=== PATIENT | female | born 1965 | race American Indian/Alaskan Native ===

== ENCOUNTER 2017-10-18 13:54 | Emergency (ER) | payer SELFPAY ==
[2017-10-18 15:10] VITALS: BP 144/87
[2017-10-18 16:37] LABS: Bacteria,Urine 1+ /HPF (Negative); Mucus,Urine FEW /HPF; WBC,Urine < 1.0 /HPF (0.0-6.0)
[2017-10-18 16:38] LABS: Bilirubin,Urine NEG (Negative); Blood,Urine NEG (Negative); Ketones,Urine NEG (Negative); Leukocyte Esterase,Urine NEG (Negative); Nitrite,Urine NEG (Negative); Protein,Urine <15 mg/dL mg/dL (Negative); Urobilinogen,Urine < 2.0 mg/dL (<2.0)
[2017-10-18 16:42] LABS: Hematocrit 36.1 % (30.3-42.9); Hemoglobin 12.3 gm/dl (10.1-14.3); Mean Corpuscular HGB Conc 34 % (30-34); Mean Corpuscular Hemoglobin 27 pg (28-32); Mean Corpuscular Volume 80 fl (79-97); Platelet Count 389 K/mm3 (140-440); Red Cell Distribution Width 14.3 % (13.2-15.2); White Blood Count 12.9 K/mm3 (4.5-11.0)
--- NOTE | 2017-10-18 17:04 | Emergency Department Report ---
ED Abdominal Pain HPI - General Chief Complaint: Abdominal Pain Stated Complaint: RT SIDE BACK PAIN Time Seen by Provider: 10/18/17 16:06 Source: patient, family, old records reviewed Mode of arrival: Ambulatory Limitations: No Limitations - History of Present Illness -: Gradual Location: R flank Migration to: R flank Severity scale (0 -10): 4 Quality: aching Consistency: constant Improves With: nothing Worsens With: movement Context: other (MED NONADH) Associated Symptoms: denies: nausea, vomiting, diarrhea, fever, chills, constipation, dysuria, hematemesis, hematochezia, melena, hematuria, anorexia, syncope - Related Data LMP (females 10-50): other (MENOPAUSE) Previous Rx's Medication Instructions Recorded Last Taken Type Metformin HCl 1,000 mg PO BID #60 tablet 10/18/17 Unknown Rx Allergies Allergy/AdvReac Type Severity Reaction Status Date / Time No Known Allergies Allergy Verified 02/19/15 08:29 ED Review of Systems ROS: Stated complaint: RT SIDE BACK PAIN Other details as noted in HPI Comment: All other systems reviewed and negative Gastrointestinal: other (L FLANK PAIN ONLY) ED Past Medical Hx - Past Medical History Hx Hypertension: No Hx CVA: No Hx Heart Attack/AMI: No Hx Congestive Heart Failure: No Hx Diabetes: Yes Hx Deep Vein Thrombosis: No Hx Pulmonary Embolism: No Hx GERD: No Hx Sickle Cell Disease: No Hx Arthritis: No Hx Headaches / Migraines: No Hx Seizures: No Hx Kidney Stones: No Hx Asthma: No Hx COPD: No Additional medical history: Elevated cholesterol but does not take her medications because it gives her a headache. - Surgical History Additional Surgical History: csection X 5. HYSTERECTOMY - Social History Smoking Status: Never Smoker Substance Use Type: None - Medications Home Medications: Home Medications Medication Instructions Recorded Confirmed Last Taken Type Metformin HCl 1,000 mg PO BID #60 tablet 10/18/17 Unknown Rx ED Physical Exam - General Limitations: No Limitations General appearance: alert - Head Head exam: Present: atraumatic - Eye Eye exam: Present: normal appearance Pupils: Present: normal accommodation - ENT ENT exam: Present: mucous membranes moist - Neck Neck exam: Present: normal inspection - Respiratory Respiratory exam: Present: normal lung sounds bilaterally - Cardiovascular Cardiovascular Exam: Present: regular rate - GI/Abdominal GI/Abdominal exam: Present: soft, normal bowel sounds. Absent: distended, tenderness, guarding, rebound, rigid, diminished bowel sounds, hyperactive bowel sounds, hypoactive bowel sounds, organomegaly, mass, bruit, pulsatile mass , hernia - Rectal Rectal exam: Present: deferred - Extremities Exam Extremities exam: Present: normal inspection - Back Exam Back exam: Present: normal inspection, full ROM. Absent: tenderness, CVA tenderness (R), CVA tenderness (L) - Neurological Exam Neurological exam: Present: alert, oriented X3 - Psychiatric Psychiatric exam: Present: normal affect, normal mood - Skin Skin exam: Present: warm, dry, intact ED Course Vital Signs 10/18/17 15:06 Temperature 98.1 F Pulse Rate 98 H Respiratory 18 Rate Blood Pressure 144/87 O2 Sat by Pulse 99 Oximetry - Reevaluation(s) Reevaluation #1: to er w r flank pain dm off meds labs noted fluids insulin bs trending downwards labs noted ua noted ambulatory neuro intact taking po did not understand dm for a life time non adh w diet due holiday no polyuria, dip., or phagia abd exam benign no cva no fever non toxic non ill appearing Reevaluation #2: 10/18 family and pt updated on plan of care dc home w dc poc and follow up rx for her metformin ED Medical Decision Making - Lab Data Result diagrams: 10/18/17 16:18 10/18/17 16:18 - Medical Decision Making SEE NOTE - Differential Diagnosis UTI V STONE Critical care attestation.: If time is entered above; I have spent that time in minutes in the direct care of this critically ill patient, excluding procedure time. ED Disposition Clinical Impression: Hyperglycemia, Diabetes mellitus, Morbid obesity, Nonadherence to medical treatment Disposition: DC- TO HOME OR SELFCARE Is pt being admited?: No Does the pt Need Aspirin: No Condition: Stable Instructions: Diabetes Mellitus Type 2 in Adults (ED), Flank Pain (ED), Diabetic Hyperglycemia (ED) Additional Instructions: DIABETIC DIET TAKE MEDS YOU ARE INSTRUCTED FOLLOW UP WITH PCP- REFERRAL BELOW HYDRATE WELL WITH WATER LIMIT SUGAR INTAKE MOTRIN OR TYLENOL FOR PAIN OR FEVER Prescriptions: Metformin HCl 1,000 mg PO BID #60 tablet Referrals: PRIMARY CAREMD [Primary Care Provider] - 3-5 Days MIRLANDE MARINO MD [Staff Physician] - 3-5 Days Forms: Work/School Release Form(ED) Time of Disposition: 18:30
[2017-10-18 17:06] LABS: Anion Gap 19 mmol/L; BUN/Creatinine Ratio 24; Blood Urea Nitrogen 12 mg/dL (7-17); Calcium 9.7 mg/dL (8.4-10.2); Carbon Dioxide 28 mmol/L (22-30); Glucose 367 mg/dL (65-100); Potassium 4.4 mmol/L (3.6-5.0); Sodium 138 mmol/L (137-145)
[2017-10-18 17:19] LABS: Amylase 34 units/L (27-131); Lipase 15 units/L (13-60)
[2017-10-18 17:23] LABS: Alanine Aminotransferase 12 units/L (7-56); Albumin 4.1 g/dL (3.9-5); Alkaline Phosphatase 153 units/L (35-129); Total Protein 8.1 g/dL (6.3-8.2)
[2017-10-18 17:24] LABS: Bilirubin,Direct < 0.2 mg/dL (0-0.2); Bilirubin,Indirect 0.1 mg/dL
[2017-10-18] MEDS ORDERED: NACL 0.9% 1000 ML 1,000 ML IV ONE (17:27)
[2017-10-18] MEDS ORDERED: K-DUR PO ONE (18:30)
== END 2017-10-18 19:45 | disposition home or self-care (01) ==
LOC: ED 13:54
DX: E11.65 Type 2 diabetes mellitus with hyperglycemia (principal); E66.01 Morbid (severe) obesity due to excess calories; Z91.19 Patient's noncompliance with other medical treatment and regimen; Z79.84 Long term (current) use of oral hypoglycemic drugs
CPT/HCPCS: 36415; 80048; 80074; 81001; 82010; 82150; 82962; 83690; 85027; 96361; 96374; 99284; J7030; J1815

== ENCOUNTER 2019-05-31 06:47 | Emergency (ER) | payer OTHER ==
[2019-05-31 06:54] VITALS: BP 135/93
--- NOTE | 2019-05-31 08:07 | Emergency Department Report ---
ED Extremity Problem HPI - General Chief complaint: Extremity Injury, Lower Stated complaint: LEFT KNEE PAIN Time Seen by Provider: 05/31/19 07:38 Source: patient Mode of arrival: Ambulatory Limitations: No Limitations - History of Present Illness Complaint: extremity pain Onset/Timin -: month(s) Location: left Severity scale (0 -10): 8 Quality: stabbing, sharp Consistency: intermittent Improves with: rest Worsens with: weight bearing, walking - Related Data Previous Rx's Medication Instructions Recorded Last Taken Type Metformin HCl [metFORMIN] 1,000 mg PO BID #60 tablet 10/18/17 Unknown Rx Ibuprofen [Motrin 600 MG tab] 600 mg PO Q8H PRN #30 tablet 05/31/19 Unknown Rx Allergies Allergy/AdvReac Type Severity Reaction Status Date / Time No Known Allergies Allergy Verified 02/19/15 08:29 ED Review of Systems ROS: Stated complaint: LEFT KNEE PAIN Other details as noted in HPI Comment: All other systems reviewed and negative Constitutional: denies: chills, fever Eyes: denies: eye pain, eye discharge, vision change ENT: denies: ear pain, throat pain Respiratory: denies: cough, shortness of breath, wheezing Cardiovascular: denies: chest pain, palpitations Endocrine: no symptoms reported Gastrointestinal: denies: abdominal pain, nausea, diarrhea Genitourinary: denies: urgency, dysuria, discharge Musculoskeletal: arthralgia. denies: back pain, joint swelling Skin: denies: rash, lesions Neurological: denies: headache, weakness, paresthesias Psychiatric: denies: anxiety, depression Hematological/Lymphatic: denies: easy bleeding, easy bruising ED Past Medical Hx - Past Medical History Previous Medical History?: Yes Hx Hypertension: No Hx CVA: No Hx Heart Attack/AMI: No Hx Congestive Heart Failure: No Hx Diabetes: Yes Hx Deep Vein Thrombosis: No Hx Pulmonary Embolism: No Hx GERD: No Hx Sickle Cell Disease: No Hx Arthritis: Yes Hx Headaches / Migraines: No Hx Seizures: No Hx Kidney Stones: No Hx Asthma: No Hx COPD: No Additional medical history: Elevated cholesterol but does not take her medications because it gives her a headache. - Surgical History Past Surgical History?: Yes Additional Surgical History: csection X 5. HYSTERECTOMY - Social History Smoking Status: Never Smoker Substance Use Type: Alcohol - Medications Home Medications: Home Medications Medication Instructions Recorded Confirmed Last Taken Type Metformin HCl [metFORMIN] 1,000 mg PO BID #60 tablet 10/18/17 Unknown Rx Ibuprofen [Motrin 600 MG tab] 600 mg PO Q8H PRN #30 tablet 05/31/19 Unknown Rx ED Physical Exam - General Limitations: No Limitations General appearance: alert, in no apparent distress - Head Head exam: Present: atraumatic, normocephalic - Eye Eye exam: Present: normal appearance - ENT ENT exam: Present: mucous membranes moist - Neck Neck exam: Present: normal inspection - Expanded Lower Extremity Exam Left Knee exam: Present: full ROM, crepidus. Absent: tenderness, swelling, abrasion - Back Exam Back exam: Present: normal inspection - Neurological Exam Neurological exam: Present: alert, oriented X3, normal gait ED Course Vital Signs 05/31/19 06:53 Temperature 97.2 F L Pulse Rate 86 Respiratory 18 Rate Blood Pressure 135/93 [Right] O2 Sat by Pulse 98 Oximetry ED Medical Decision Making - Medical Decision Making Patient is a 54-year-old female comes in for left knee pain for one month. Reports pains increase last night. Patient reports pain is sharp around the knee and when she gets up she has crackling sounds. Patient denies any trauma. Patient reports that she had this in the past and was told that she is having arthritis. Critical care attestation.: If time is entered above; I have spent that time in minutes in the direct care of this critically ill patient, excluding procedure time. ED Disposition Clinical Impression: Osteoarthritis Disposition: DC-01 TO HOME OR SELFCARE Is pt being admited?: No Does the pt Need Aspirin: No Condition: Stable Instructions: Osteoarthritis (ED) Additional Instructions: Take pain medication as needed. Follow-up in orthopedic provider I have listed to below for your convenience. Prescriptions: Ibuprofen [Motrin 600 MG tab] 600 mg PO Q8H PRN #30 tablet PRN Reason: Pain Referrals: LYN PRECIADO MD [Staff Physician] - 3-5 Days GIL MENSAH MD [Referring] - 3-5 Days LARON MENSAH MD [Staff Physician] - 3-5 Days Forms: Work/School Release Form(ED)
== END 2019-05-31 08:20 | disposition home or self-care (01) ==
LOC: ED 06:47
DX: M19.90 Unspecified osteoarthritis, unspecified site (principal); E11.9 Type 2 diabetes mellitus without complications; E78.00 Pure hypercholesterolemia, unspecified; Z90.710 Acquired absence of both cervix and uterus
CPT/HCPCS: 99282